=== PATIENT | female | born 1990 | race Caucasian/White ===

== ENCOUNTER 2018-11-17 16:10 | Emergency (ER) | payer SELFPAY ==
[~2018-11-17] VITALS: Ht 162.5 cm; Wt 63.5 kg
[~2018-11-17 16:10] MED LIST: AMOXICILLIN500 M2 PO; AMOXICILLIN500 MG PO; CELEXA20 MG PO; CLINDAMYCIN HC300 MG PO; CYCLOBENZAPRINE10 MG PO; DESOGESTREL-ETH1 TAB PO; DOXYCYCLINE MO100 MG PO; FLEXERIL10 MG PO; HYDROCODONE BIT1 T11 PO; IBUPROFEN600 MG PO; IRON325 M1 PO; MOTRIN800 MG PO; PERCOCET 325 MG1 TA2 PO; PHENERGAN25 M1 PO; PROCARDIA10 MG PO; VICODIN ES 7501 TAB PO; Zofran4 MG PO
[2018-11-17 16:33] LABS: BILIRUBIN NEGATIVE (NEGATIVE); BLOOD NEGATIVE (NEGATIVE); CLARITY CLEAR (CLEAR); COLOR YELLOW (YELLOW); GLUCOSE NEGATIVE (NEGATIVE); KETONE NEGATIVE (NEGATIVE); LEUKO ESTERASE NEGATIVE (NEGATIVE); NITRITE NEGATIVE (NEGATIVE); PH 6.5 (5.0-9.0); SPECIFIC GRAVITY <= 1.005 (1.005-1.030); UROBILINOGEN 0.2 E.U./dl (0.2-1.0)
[2018-11-17 16:41] LABS: BACTERIA TRACE; WBC 0-2 wbc/hpf (0-5)
== END 2018-11-17 16:51 | disposition home or self-care (01) ==
LOC: ED 16:10
PROVIDERS: Nurse Practitioner Family
DX: R11.0 Nausea (principal); R35.0 Frequency of micturition; Z32.01 Encounter for pregnancy test, result positive; Z79.899 Other long term (current) drug therapy

== ENCOUNTER → 2019-04-21 | Outpatient (CLI) | payer OTHER | END | disposition home or self-care (01) | LOC: LAB 07:46 | DX: O99.810 Abnormal glucose complicating pregnancy (principal); Z3A.24 24 weeks gestation of pregnancy ==

== ENCOUNTER → 2019-06-05 | Outpatient (CLI) | payer OTHER | END | disposition home or self-care (01) | LOC: US 14:18 | DX: Z34.93 Encounter for supervision of normal pregnancy, unspecified, third trimester (principal); Z3A.35 35 weeks gestation of pregnancy ==

== ENCOUNTER → 2020-02-15 | Outpatient (CLI) | payer OTHER ==
[~2020-02-15] MED LIST changes: +LARIN 1.5 MG-31 EACH PO; +Motrin,Rufen800 MG PO; +NORCO 5-325 TA1 EACH PO
== END | disposition home or self-care (01) ==
LOC: LAB 14:29
DX: Z30.2 Encounter for sterilization (principal); Z63.79 Other stressful life events affecting family and household

== ENCOUNTER → 2020-02-15 | Outpatient (CLI) | payer OTHER | END | disposition home or self-care (01) | LOC: COVID19 08:04 | DX: Z01.818 Encounter for other preprocedural examination (principal); Z11.59 Encounter for screening for other viral diseases ==

== ENCOUNTER → 2020-02-20 | Day surgery (SDC) | payer OTHER ==
[2020-02-15 14:03] VITALS: BP 130/76
[~2020-02-20] VITALS: Ht 162.5 cm; Wt 71.2 kg
[2020-02-20 08:54] VITALS: BP 141/78
[2020-02-20 10:48] VITALS: BP 120/69
[2020-02-20 11:03] VITALS: BP 116/66
[2020-02-20 11:18] VITALS: BP 111/58
[2020-02-20 11:33] VITALS: BP 107/57
[2020-02-20 11:48] VITALS: BP 103/58
== END | disposition home or self-care (01) ==
LOC: SDC 02-15 14:00
DX: Z30.2 Encounter for sterilization (principal); Z98.51 Tubal ligation status; Z87.891 Personal history of nicotine dependence; Z98.890 Other specified postprocedural states; Z79.899 Other long term (current) drug therapy

== ENCOUNTER 2024-05-24 13:46 | Emergency (ER) | payer OTHER ==
[~2024-05-24] VITALS: Ht 162.5 cm; Wt 63.5 kg
== END 2024-05-24 16:55 | disposition home or self-care (01) ==
LOC: ED 13:46
DX: J06.9 Acute upper respiratory infection, unspecified (principal); Z20.822 Contact with and (suspected) exposure to COVID-19; R11.2 Nausea with vomiting, unspecified; R04.2 Hemoptysis; F17.290 Nicotine dependence, other tobacco product, uncomplicated; Z98.890 Other specified postprocedural states